=== PATIENT | female | born 1985 | race Two or more races ===

== ENCOUNTER 2023-04-22 18:48 | Observation (INO) | payer BC ==
[2023-04-22] MEDS ORDERED: Sodium Chloride 0.9% 10 ML Syringe FLUSH PRN (19:22)
[2023-04-22] MEDS ORDERED: Sodium Chloride 0.9% 2.5 ML Syringe FLUSH PRN (19:22)
[2023-04-22 20:18] LABS: BASOPHILS ABSOLUTE AUTO 0.03 K/uL (0.00-0.20); BASOPHILS PERCENT AUTO 0.3 % (0.0-1.0); HEMOGLOBIN 13.9 g/dL (12.0-16.0); IMMATURE GRAN ABSOLUTE AUTO 0.03 K/uL (0.00-0.05); IMMATURE GRAN PERCENT AUTO 0.3 % (0.0-0.4); LYMPHOCYTES ABSOLUTE AUTO 2.23 K/uL (1.00-4.80); LYMPHOCYTES PERCENT AUTO 22.5 % (24.0-44.0); MEAN CORPUSCULAR HGB CONC 34.8 g/dL (32.0-36.0); MEAN CORPUSCULAR VOLUME 86.2 fL (83.0-99.0); MEAN PLATELET VOLUME 10.3 fL (9.4-12.3); MONOCYTES ABSOLUTE AUTO 0.45 K/uL (0.00-0.80); MONOCYTES PERCENT AUTO 4.5 % (0.0-8.0); NEUTROPHILS ABSOLUTE AUTO 7.18 K/uL (1.80-7.70); NEUTROPHILS PERCENT AUTO 72.4 % (41.0-71.0); PLATELET COUNT,PLT 224 K/uL (150-400); RED BLOOD CELL COUNT 4.64 M/uL (4.10-5.30); WHITE BLOOD CELL COUNT,WBC 9.92 K/uL (3.9-11.3)
[2023-04-22 20:36] LABS: INR 1.02 (0.86-1.11); PTT,PARTIAL THROMBOPLSTIN TIME 31.9 SEC (23.9-30.7)
[2023-04-22 20:45] LABS: ALANINE AMINOTRANSFERASE,ALT 19 IU/L (14-63); ALKALINE PHOSPHATASE 68 U/L (46-116); ASPARTATE AMNIOTRANSFERASE,AST 14 IU/L (15-37); BILIRUBIN TOTAL 0.5 mg/dL (0.2-1.0); BLOOD UREA NITROGEN,BUN 5 mg/dL (7.0-18.0); CALCIUM 9.4 mg/dL (8.5-10.1); CARBON DIOXIDE,CO2 22.8 mmol/L (21.0-32.0); CHLORIDE,CL 103 mmol/L (98-107); CREATININE 0.5 mg/dL (0.6-1.0); GLUCOSE RANDOM 112 mg/dL (74-106); LIPASE 29 U/L (16-77); POTASSIUM,K 3.6 mmol/L (3.5-5.1); PROTEIN TOTAL,TP 7.9 g/dL (6.4-8.2); SODIUM,NA 138 mmol/L (136-145)
[2023-04-22 20:48] LABS: MAGNESIUM 2.1 mg/dL (1.8-2.4)
[2023-04-22 20:50] LABS: ESTIMATED GFR 123 mL/min (>60)
[2023-04-22 21:05] LABS: HEMATOCRIT 31.3 % (37.0-47.0); HEMOGLOBIN 10.8 g/dL (12.0-16.0)
[2023-04-22] MEDS ORDERED: Naloxone 0.4 MG/ML SDV IVPUSH PRN ×2 (21:10→23:36)
[2023-04-22] MEDS ORDERED: Morphine 2 MG/ML SYRINGE IVPUSH STA (21:10)
[2023-04-22] MEDS ORDERED: Ondansetron 4 MG/2 ML SDV IVPUSH STA (21:10)
[2023-04-22] MEDS ORDERED: Tranexamic Acid 1,000 MG in Sodium Chloride 0.9% 100 ML IV STA (21:28)
[2023-04-22] MEDS ORDERED: Sodium Chloride 0.9% 1,000 ML IV STA ×2 (21:40)
[2023-04-22] MEDS ORDERED: Lidocaine 2% 5 ML SDV ONE (22:35)
[2023-04-22] MEDS ORDERED: fentaNYL 100 MCG/2 ML SDV ONE (22:35)
[2023-04-22] MEDS ORDERED: Propofol 200 MG/20 ML SDV ONE (22:35)
[2023-04-22] MEDS ORDERED: Ondansetron 4 MG/2 ML SDV ONE (22:35)
[2023-04-22] MEDS ORDERED: Misoprostol 200 MCG Tab ONE (23:07)
[2023-04-22] MEDS ORDERED: Oxytocin 10 Units/1 ML SDV ONE (23:09)
[2023-04-22] MEDS ORDERED: Phenylephrine HCl 0.5 MG/5 ML AMP ONE (23:18)
[2023-04-22] MEDS ORDERED: Albuterol 0.083% 2.5 MG/3 ML Neb Soln NEB PRN (23:36)
[2023-04-22] MEDS ORDERED: Morphine 2 MG/ML SYRINGE IVPUSH PRN (23:36)
[2023-04-22] MEDS ORDERED: fentaNYL 50 MCG/ML SDV IVPUSH PRN (23:36)
[2023-04-22] MEDS ORDERED: Ondansetron 4 MG/2 ML SDV IVPUSH PRN ×2 (23:36→23:49)
[2023-04-22] MEDS ORDERED: HYDROmorphone 1 MG/ML Syringe IVPUSH PRN (23:36)
[2023-04-22] MEDS ORDERED: Metoclopramide 10 MG/2 ML SDV IVPUSH PRN (23:36)
[2023-04-22] MEDS ORDERED: droPERidol 5 MG/2 ML SDV IVPUSH PRN (23:36)
[2023-04-22] MEDS ORDERED: oxyCODONE 5 MG Tab PO PRN (23:49)
[2023-04-22] MEDS ORDERED: Ketorolac 30 MG/ML SDV IVPUSH ONE (23:49)
[2023-04-22] MEDS ORDERED: Promethazine 25 MG/ML SDV IM PRN (23:49)
[2023-04-23] MEDS: Acetaminophen 500 MG Tab PO SCH ×5 (00:36→16:14)
[2023-04-23] MEDS: Ketorolac 30 MG/ML SDV IVPUSH SCH ×2 (05:38→14:23)
[2023-04-23 06:02] LABS: BASOPHILS ABSOLUTE AUTO 0.01 K/uL (0.00-0.20); BASOPHILS PERCENT AUTO 0.1 % (0.0-1.0); HEMATOCRIT 33.5 % (37.0-47.0); HEMOGLOBIN 11.5 g/dL (12.0-16.0); IMMATURE GRAN ABSOLUTE AUTO 0.04 K/uL (0.00-0.05); IMMATURE GRAN PERCENT AUTO 0.3 % (0.0-0.4); LYMPHOCYTES ABSOLUTE AUTO 2.96 K/uL (1.00-4.80); LYMPHOCYTES PERCENT AUTO 25.9 % (24.0-44.0); MEAN CORPUSCULAR HEMOGLOBIN 29.7 pg (28.0-32.0); MEAN CORPUSCULAR HGB CONC 34.3 g/dL (32.0-36.0); MEAN CORPUSCULAR VOLUME 86.6 fL (83.0-99.0); MEAN PLATELET VOLUME 10.3 fL (9.4-12.3); MONOCYTES ABSOLUTE AUTO 0.62 K/uL (0.00-0.80); MONOCYTES PERCENT AUTO 5.4 % (0.0-8.0); NEUTROPHILS ABSOLUTE AUTO 7.81 K/uL (1.80-7.70); NEUTROPHILS PERCENT AUTO 68.3 % (41.0-71.0); PLATELET COUNT,PLT 165 K/uL (150-400); RED BLOOD CELL COUNT 3.87 M/uL (4.10-5.30); WHITE BLOOD CELL COUNT,WBC 11.44 K/uL (3.9-11.3)
[2023-04-23 06:26] LABS: BLOOD UREA NITROGEN,BUN 6 mg/dL (7.0-18.0); CALCIUM 7.5 mg/dL (8.5-10.1); CARBON DIOXIDE,CO2 23.6 mmol/L (21.0-32.0); CHLORIDE,CL 107 mmol/L (98-107); CREATININE 0.6 mg/dL (0.6-1.0); GLUCOSE RANDOM 116 mg/dL (74-106); POTASSIUM,K 3.5 mmol/L (3.5-5.1); SODIUM,NA 141 mmol/L (136-145)
[2023-04-23 06:27] LABS: ESTIMATED GFR 118 mL/min (>60)
== END 2023-04-23 16:10 | disposition home or self-care (01) ==
LOC: MW.ED 18:48 → MW.SDS 21:48 → MW.MS 21:48 → MW.SDS 23:49 → MW.MS 23:49
PROVIDERS: ADMIT Obstetrics & Gynecology; ATTEND Obstetrics & Gynecology
DX: O03.4 Incomplete spontaneous abortion without complication (principal); D62 Acute posthemorrhagic anemia
CPT/HCPCS: 36415; 36430; 59812; 76817; 80048; 80053; 83690; 83735; 84702; 85014; 85018; 85025; 85610; 85730; 86850; 86900; 86901; 86920; 96374; 96375; 99291; A9270; J1885; J2270; J2371; J2405; J2590; J2704; J3010; J3490; J7030; P9016; 96376; G0378

== ENCOUNTER 2023-10-20 06:13 | Emergency (ER) | payer BC ==
[2023-10-20] MEDS: diphenhydrAMINE 50 MG/ML SDV IVPUSH ONE (06:40)
[2023-10-20] MEDS: Sodium Chloride 0.9% 1,000 ML IV ONE (06:40)
[2023-10-20] MEDS: Metoclopramide 10 MG/2 ML SDV IVPUSH ONE (06:40)
[2023-10-20 06:50] LABS: BASOPHILS ABSOLUTE AUTO 0.03 K/uL (0.00-0.20); BASOPHILS PERCENT AUTO 0.5 % (0.0-1.0); EOSINOPHILS ABSOLUTE AUTO 0.13 K/uL (0.00-0.45); HEMATOCRIT 40.7 % (37.0-47.0); HEMOGLOBIN 13.9 g/dL (12.0-16.0); IMMATURE GRAN ABSOLUTE AUTO 0.01 K/uL (0.00-0.05); IMMATURE GRAN PERCENT AUTO 0.2 % (0.0-0.4); LYMPHOCYTES PERCENT AUTO 50.1 % (24.0-44.0); MEAN CORPUSCULAR HEMOGLOBIN 29.4 pg (28.0-32.0); MEAN CORPUSCULAR HGB CONC 34.2 g/dL (32.0-36.0); MEAN PLATELET VOLUME 10.1 fL (9.4-12.3); MONOCYTES ABSOLUTE AUTO 0.47 K/uL (0.00-0.80); MONOCYTES PERCENT AUTO 7.4 % (0.0-8.0); NEUTROPHILS ABSOLUTE AUTO 2.55 K/uL (1.80-7.70); NEUTROPHILS PERCENT AUTO 39.8 % (41.0-71.0); PLATELET COUNT,PLT 206 K/uL (150-400); RED BLOOD CELL COUNT 4.73 M/uL (4.10-5.30); WHITE BLOOD CELL COUNT,WBC 6.39 K/uL (3.9-11.3)
[2023-10-20 07:21] LABS: A/G RATIO 1.1 (0.9-1.6); ALBUMIN 3.9 g/dL (3.4-5.0); CALCIUM 9.2 mg/dL (8.5-10.1); CARBON DIOXIDE,CO2 27.6 mmol/L (21.0-32.0); CREATININE 0.6 mg/dL (0.6-1.0); EST CRCL DRUG DOSING (CG) 100.55 mL/min; POTASSIUM,K 3.3 mmol/L (3.5-5.1); PROTEIN TOTAL,TP 7.6 g/dL (6.4-8.2); TSH ULTRASENSITIVE 4.32 uIU/mL (0.36-3.74)
[2023-10-20 07:37] LABS: T4 FREE 0.99 ng/dL (0.76-1.46)
[2023-10-20] MEDS: Iopamidol 755 MG/ML 500 ML Multipack Bottle IVPUSH ONE (07:54)
[2023-10-20] MEDS: Ketorolac 30 MG/ML SDV IVPUSH ONE (08:15)
[2023-10-20] MEDS: Meclizine 25 MG Tab PO ONE (08:15)
== END 2023-10-20 09:25 | disposition home or self-care (01) ==
LOC: MW.ED 06:13
DX: R42 Dizziness and giddiness (principal); R51.9 Headache, unspecified; Z91.048 Other nonmedicinal substance allergy status; Z79.899 Other long term (current) drug therapy; Z75.8 Other problems related to medical facilities and other health care
CPT/HCPCS: 36415; 70450; 70496; 70498; 80053; 82947; 84439; 84443; 84484; 84703; 85025; 93005; 96361; 96374; 96375; 99284; A9270; J1200; J1885; J2765; J7030; Q9967; 93010